=== PATIENT | female | born 1975 | race Two or more races ===

== ENCOUNTER 2022-02-25 05:35 | Inpatient (IN) | payer BC ==
[2022-02-22 09:41] VITALS: BMI 50.1
[2022-02-25] MEDS ORDERED: LIDOCAINE HCL 1% EPINEPHRINE 1:200,000 30 ML VIAL (PF) ONE (07:21)
[2022-02-25] MEDS ORDERED: BUPIVACAINE HCL/PF 0.5% (5MG/ML) 10 ML VIAL ONE (07:21)
[2022-02-25] MEDS ORDERED: THROMBIN (BOVINE) 20,000 UNIT VIAL TP ONE (07:21)
[2022-02-25] MEDS ORDERED: GENTAMICIN SO4 80 MG/2 ML VIAL ONE (07:21)
[2022-02-25] MEDS ORDERED: BUPIVACAINE LIPOSOME/PF (EXPAREL) 266 MG/20 ML VIAL ONE (07:21)
[2022-02-25] MEDS ORDERED: ceFAZolin SODIUM 1 GM VIAL IVPB ONE ×2 (07:36→09:04)
[2022-02-25] MEDS ORDERED: ROCURONIUM BROMIDE 50 MG/5 ML SYRINGE ONE ×2 (07:38→09:52)
[2022-02-25] MEDS ORDERED: THROMBIN (BOVINE) 5,000 UNIT VIAL TP ONE ×2 (07:38→10:10)
[2022-02-25] MEDS ORDERED: SUCCINYLCHOLINE CHLORIDE 200 MG/10 ML SYRINGE ONE (07:38)
[2022-02-25] MEDS ORDERED: VANCOMYCIN 1 GM in D5W (PRE-DOCKED) 1,000 MG/250 ML IVPB ONE ×4 (07:38→11:17)
[2022-02-25] MEDS ORDERED: PROPOFOL 20 ML ONE ×5 (07:38→11:21)
[2022-02-25] MEDS ORDERED: MIDAZOLAM HCL 2 MG/2 ML SINGLE DOSE VIAL ONE (07:39)
[2022-02-25] MEDS ORDERED: GENTAMICIN SO4 80 MG/2 ML VIAL IVPB ONE ×2 (07:40→10:15)
[2022-02-25] MEDS ORDERED: HYDROGEN PEROXIDE 473 ML PO ONE ×2 (07:41→10:19)
[2022-02-25] MEDS ORDERED: BUPIVACAINE HCL/PF 0.5% (5MG/ML) 10 ML VIAL IJ ONE ×2 (07:43→11:20)
[2022-02-25] MEDS ORDERED: BUPIVACAINE LIPOSOME/PF (EXPAREL) 266 MG/20 ML VIAL NR ONE ×2 (07:43→11:20)
[2022-02-25] MEDS ORDERED: VANCOMYCIN 1,000 MG VIAL (RESTRICTED TO ID ONLY) ONE ×2 (07:45→09:18)
[2022-02-25] MEDS ORDERED: DEXMEDETOMIDINE HCL 200 MCG/2 ML IVPB ONE (07:56)
[2022-02-25] MEDS ORDERED: ACETAMINOPHEN INJECTION 100 ML IVPB ONE (07:56)
[2022-02-25] MEDS ORDERED: LIDOCAINE HCL/PF 2% SDV 5ML VIAL ONE (09:18)
[2022-02-25] MEDS ORDERED: ceFAZolin SODIUM 1 GM VIAL ONE ×2 (09:18→17:27)
[2022-02-25] MEDS ORDERED: ONDANSETRON 4 MG/2 ML VIAL ONE (09:18)
[2022-02-25] MEDS ORDERED: DEXAMETHASONE SOD PHOSPHATE 4 MG/1 ML VIAL ONE (09:18)
[2022-02-25] MEDS ORDERED: TRIAMTERENE AND HCTZ - 37.5 MG/25 MG CAPSULE PO SCH (10:00)
[2022-02-25] MEDS ORDERED: GELATIN, ABSORBABLE 100 EACH SPONGE TP ONE (11:21)
[2022-02-25] MEDS ORDERED: LIDOCAINE HCL 2% JELLY (5 ML/TUBE) ONE (11:55)
[2022-02-25] MEDS ORDERED: ONDANSETRON 4 MG/2 ML VIAL IVPUSH PRN ×2 (12:37→12:41)
[2022-02-25] MEDS ORDERED: diphenhydrAMINE HCL 25 MG CAPSULE (FP) PO PRN (12:41)
[2022-02-25] MEDS ORDERED: LACTATED RINGERS SOLUTION 1,000 ML IV SCH (12:45)
[2022-02-25] MEDS: LACTATED RINGERS SOLUTION 1,000 ML/1,000 ML INFUS.BAG IV SCH ×2 (13:10→13:30)
[2022-02-25] MEDS ORDERED: METHOTREXATE 2.5 MG TABLET PO SCH (13:15)
[2022-02-25] MEDS: DOCUSATE SODIUM 100 MG CAPSULE (FP) PO SCH ×3 (16:11→21:53)
[2022-02-25] MEDS ORDERED: POLYETHYLENE GLYCOL (HEALTHYLAX) 3350 17 GM PACKET PO PRN (16:14)
[2022-02-25] MEDS: INSULIN SLIDING SCALE (NOVOLOG) 1 VIAL SQ SCH ×2 (17:12→21:54)
[2022-02-25] MEDS ORDERED: DEXTROSE 5%-WATER - 50 ML IVPB ONE (17:27)
[2022-02-25] MEDS: CEFAZOLIN 1 GM in DEXTROSE 5%-WATER - 1 GM/50 ML IVPB IVPB SCH (17:49)
[2022-02-25] MEDS ORDERED: LOSARTAN POTASSIUM 50 MG TABLET PO SCH (18:00)
[2022-02-25] MEDS ORDERED: METOCLOPRAMIDE HCL INJECTION 10 MG/2 ML VIAL IVPUSH ONE (20:22)
[2022-02-25] MEDS: FOLIC ACID 1 MG TABLET (FP) PO SCH (21:53)
[2022-02-26] MEDS ORDERED: DEXTROSE 5%-WATER - 50 ML IVPB ONE ×3 (00:58→18:16)
[2022-02-26] MEDS ORDERED: ceFAZolin SODIUM 1 GM VIAL ONE ×3 (00:58→18:16)
[2022-02-26] MEDS: CEFAZOLIN 1 GM in DEXTROSE 5%-WATER - 1 GM/50 ML IVPB IVPB SCH ×3 (01:03→18:28)
[2022-02-26] MEDS ORDERED: TRIAMTERENE AND HCTZ - 37.5 MG/25 MG CAPSULE PO SCH ×2 (02:00→10:00)
[2022-02-26] MEDS: INSULIN SLIDING SCALE (NOVOLOG) 1 VIAL SQ SCH ×2 (06:50→12:31)
[2022-02-26] MEDS: DOCUSATE SODIUM 100 MG CAPSULE (FP) PO SCH ×4 (06:50→21:26)
[2022-02-26] MEDS ORDERED: HEPARIN NA (PORCINE) 5,000 UNITS/ML 1ML VIAL SQ SCH (07:00)
[2022-02-26] MEDS ORDERED: LEVOTHYROXINE NA 100 MCG TABLET (FP) PO SCH (07:00)
[2022-02-26] MEDS ORDERED: FERROUS SO4 325 MG TABLET (FP) PO SCH (08:00)
[2022-02-26] MEDS ORDERED: oxyCODONE HCL 5 MG TABLET PO PRN ×3 (09:00→11:57)
[2022-02-26 09:19] LABS: HEMATOCRIT 31.3 % (32.4-45.2); HEMOGLOBIN 10.4 GM/dL (10.7-15.3); MCH 28.8 pg (25.7-33.7); MCHC 33.2 g/dl (32.0-36.0); MEAN CELL VOLUME 86.9 fl (80-96); MEAN PLT VOLUME 7.9 fl (7.5-11.1); PLATELET COUNT 432 10^3/uL (134-434); RDW 14.1 % (11.6-15.6); WHITE BLOOD COUNT 14.2 K/mm3 (4.0-10.0)
[2022-02-26] MEDS ORDERED: INSULIN (LEVEMIR) 100 UNITS/ML UNITS SQ SCH ×2 (09:30→15:33)
[2022-02-26 09:47] LABS: ALBUMIN 3.5 g/dl (3.4-5.0); BLOOD UREA NITROGEN 14.9 mg/dL (7-18)
[2022-02-26 09:49] LABS: CALCIUM 9.6 mg/dL (8.5-10.1)
[2022-02-26 09:50] LABS: CREATININE 0.7 mg/dL (0.55-1.3)
[2022-02-26 09:51] LABS: BILIRUBIN,TOTAL 0.9 mg/dL (0.2-1); TOT PROT 6.5 g/dl (6.4-8.2)
[2022-02-26] MEDS ORDERED: METHOCARBAMOL 750 MG TABLET PO PRN (09:57)
[2022-02-26] MEDS ORDERED: FAMOTIDINE 20 MG TABLET PO SCH (10:00)
[2022-02-26] MEDS ORDERED: amLODIPine BESYLATE 10 MG TABLET (FP) PO SCH (10:00)
[2022-02-26] MEDS ORDERED: LOSARTAN POTASSIUM 50 MG TABLET PO SCH (10:00)
[2022-02-26] MEDS ORDERED: FOLIC ACID 1 MG TABLET (FP) PO SCH (10:00)
[2022-02-26] MEDS ORDERED: LACTOBACILLUS ACIDOPHILUS 1 TABLET PO SCH (10:00)
[2022-02-26] MEDS: FOLIC ACID 1 MG TABLET (FP) PO SCH ×2 (10:25→21:27)
[2022-02-26] MEDS ORDERED: morphine SULFATE 4 MG/ML VIAL IVPUSH PRN (11:00)
[2022-02-26] MEDS ORDERED: ONDANSETRON 4 MG/2 ML VIAL IVPUSH PRN (11:57)
[2022-02-26] MEDS ORDERED: POLYETHYLENE GLYCOL (HEALTHYLAX) 3350 17 GM PACKET PO PRN (11:57)
[2022-02-26] MEDS ORDERED: LACTATED RINGERS SOLUTION 1,000 ML/1,000 ML INFUS.BAG IV SCH (11:57)
[2022-02-26] MEDS ORDERED: diphenhydrAMINE HCL 25 MG CAPSULE (FP) PO PRN (11:57)
[2022-02-26] MEDS: oxyCODONE HCL 5 MG TABLET PO PRN ×2 (13:10→21:27)
[2022-02-26] MEDS: HEPARIN NA (PORCINE) 5,000 UNITS/ML 1ML VIAL SQ SCH ×2 (15:26→23:55)
[2022-02-26] MEDS ORDERED: INSULIN SLIDING SCALE (NOVOLOG) 1 VIAL SQ SCH ×2 (16:30)
[2022-02-26] MEDS: LOSARTAN POTASSIUM 50 MG TABLET PO SCH (18:24)
[2022-02-26] MEDS: MONTELUKAST NA 10 MG TABLET PO SCH (21:25)
[2022-02-26] MEDS: ONDANSETRON *ODT* 4 MG TABLET SL PRN (21:27)
[2022-02-27] MEDS ORDERED: ceFAZolin SODIUM 1 GM VIAL ONE ×3 (01:55→19:15)
[2022-02-27] MEDS ORDERED: DEXTROSE 5%-WATER - 50 ML IVPB ONE ×3 (01:56→19:15)
[2022-02-27] MEDS ORDERED: TRIAMTERENE AND HCTZ - 37.5 MG/25 MG CAPSULE PO SCH ×2 (02:00→10:00)
[2022-02-27] MEDS: TRIAMTERENE AND HCTZ - 37.5 MG/25 MG CAPSULE PO SCH (02:31)
[2022-02-27] MEDS: METHOCARBAMOL 500 MG TABLET PO PRN ×3 (02:32→22:32)
[2022-02-27] MEDS: CEFAZOLIN 1 GM in DEXTROSE 5%-WATER - 1 GM/50 ML IVPB IVPB SCH ×4 (02:32→19:17)
[2022-02-27] MEDS: DOCUSATE SODIUM 100 MG CAPSULE (FP) PO SCH ×3 (05:26→22:33)
[2022-02-27] MEDS: LEVOTHYROXINE NA 100 MCG TABLET (FP) PO SCH (06:21)
[2022-02-27] MEDS: HEPARIN NA (PORCINE) 5,000 UNITS/ML 1ML VIAL SQ SCH ×3 (06:50→22:34)
[2022-02-27] MEDS: glipiZIDE-XL 5 MG TAB.ER.24 PO SCH (06:51)
[2022-02-27] MEDS: ONDANSETRON *ODT* 4 MG TABLET SL PRN ×3 (06:51→21:07)
[2022-02-27] MEDS ORDERED: FERROUS SO4 325 MG TABLET (FP) PO SCH (08:00)
[2022-02-27 08:14] LABS: BASO % 0.5 % (0-2.0); EOS % 0.3 % (0-4.5); HEMATOCRIT 30.1 % (32.4-45.2); HEMOGLOBIN 10.1 GM/dL (10.7-15.3); LYMPH % 22.7 % (8-40); MCHC 33.5 g/dl (32.0-36.0); MEAN CELL VOLUME 86.5 fl (80-96); MEAN PLT VOLUME 7.9 fl (7.5-11.1); NEUT % 66.5 % (42.8-82.8); PLATELET COUNT 378 10^3/uL (134-434); RBC 3.48 M/mm3 (3.60-5.2); RDW 14.5 % (11.6-15.6); WHITE BLOOD COUNT 14.3 K/mm3 (4.0-10.0)
[2022-02-27 08:37] LABS: CALCIUM 8.6 mg/dL (8.5-10.1)
[2022-02-27 08:38] LABS: BLOOD UREA NITROGEN 12.8 mg/dL (7-18)
[2022-02-27 08:42] LABS: CREATININE 0.7 mg/dL (0.55-1.3)
[2022-02-27] MEDS: FOLIC ACID 1 MG TABLET (FP) PO SCH ×2 (09:01→22:33)
[2022-02-27] MEDS: FAMOTIDINE 20 MG TABLET PO SCH (09:05)
[2022-02-27] MEDS: LACTOBACILLUS ACIDOPHILUS 1 TABLET PO SCH (09:06)
[2022-02-27] MEDS: amLODIPine BESYLATE 10 MG TABLET (FP) PO SCH (09:06)
[2022-02-27] MEDS ORDERED: METHOTREXATE 2.5 MG TABLET PO SCH ×2 (10:00)
[2022-02-27] MEDS: morphine SULFATE 4 MG/ML VIAL IVPUSH PRN ×2 (14:42→21:07)
[2022-02-27] MEDS ORDERED: POTASSIUM CHLORIDE TABS 20 MEQ TABLET.ER (FP) PO ONE (18:32)
[2022-02-27] MEDS: LOSARTAN POTASSIUM 50 MG TABLET PO SCH (18:48)
[2022-02-27] MEDS: MONTELUKAST NA 10 MG TABLET PO SCH (22:33)
[2022-02-28] MEDS ORDERED: ceFAZolin SODIUM 1 GM VIAL ONE ×3 (01:16→17:06)
[2022-02-28] MEDS ORDERED: DEXTROSE 5%-WATER - 50 ML IVPB ONE ×3 (01:17→17:06)
[2022-02-28] MEDS: TRIAMTERENE AND HCTZ - 37.5 MG/25 MG CAPSULE PO SCH (01:57)
[2022-02-28] MEDS: CEFAZOLIN 1 GM in DEXTROSE 5%-WATER - 1 GM/50 ML IVPB IVPB SCH ×3 (01:57→17:42)
[2022-02-28] MEDS: ONDANSETRON *ODT* 4 MG TABLET SL PRN ×4 (03:30→22:36)
[2022-02-28] MEDS: morphine SULFATE 4 MG/ML VIAL IVPUSH PRN ×3 (03:30→22:36)
[2022-02-28] MEDS: glipiZIDE-XL 5 MG TAB.ER.24 PO SCH (06:52)
[2022-02-28] MEDS: LEVOTHYROXINE NA 100 MCG TABLET (FP) PO SCH (06:53)
[2022-02-28] MEDS: DOCUSATE SODIUM 100 MG CAPSULE (FP) PO SCH ×3 (06:53→22:36)
[2022-02-28] MEDS: HEPARIN NA (PORCINE) 5,000 UNITS/ML 1ML VIAL SQ SCH ×3 (06:54→22:36)
[2022-02-28 09:03] LABS: HEMATOCRIT 32.2 % (32.4-45.2); HEMOGLOBIN 10.8 GM/dL (10.7-15.3); MCH 28.6 pg (25.7-33.7); MCHC 33.5 g/dl (32.0-36.0); MEAN CELL VOLUME 85.6 fl (80-96); MEAN PLT VOLUME 7.8 fl (7.5-11.1); PLATELET COUNT 443 10^3/uL (134-434); RBC 3.77 M/mm3 (3.60-5.2); RDW 14.3 % (11.6-15.6); WHITE BLOOD COUNT 12.1 K/mm3 (4.0-10.0)
[2022-02-28 09:28] LABS: CALCIUM 9.2 mg/dL (8.5-10.1)
[2022-02-28 09:30] LABS: CREATININE 0.8 mg/dL (0.55-1.3)
[2022-02-28] MEDS: LACTOBACILLUS ACIDOPHILUS 1 TABLET PO SCH (10:11)
[2022-02-28] MEDS: METHOCARBAMOL 500 MG TABLET PO PRN ×2 (10:11→20:19)
[2022-02-28] MEDS: FOLIC ACID 1 MG TABLET (FP) PO SCH ×2 (10:11→22:35)
[2022-02-28] MEDS: amLODIPine BESYLATE 10 MG TABLET (FP) PO SCH (10:11)
[2022-02-28] MEDS: FAMOTIDINE 20 MG TABLET PO SCH (10:11)
[2022-02-28] MEDS: oxyCODONE HCL 5 MG TABLET PO PRN (12:13)
[2022-02-28] MEDS: LOSARTAN POTASSIUM 50 MG TABLET PO SCH (18:13)
[2022-02-28] MEDS: MONTELUKAST NA 10 MG TABLET PO SCH (22:36)
[2022-03-01] MEDS ORDERED: DEXTROSE 5%-WATER - 50 ML IVPB ONE ×2 (00:59→10:49)
[2022-03-01] MEDS ORDERED: ceFAZolin SODIUM 1 GM VIAL ONE ×2 (00:59→10:48)
[2022-03-01] MEDS: CEFAZOLIN 1 GM in DEXTROSE 5%-WATER - 1 GM/50 ML IVPB IVPB SCH ×2 (01:12→10:53)
[2022-03-01] MEDS: morphine SULFATE 4 MG/ML VIAL IVPUSH PRN ×2 (04:03→11:40)
[2022-03-01] MEDS: ONDANSETRON *ODT* 4 MG TABLET SL PRN ×2 (04:04→11:42)
[2022-03-01] MEDS: HEPARIN NA (PORCINE) 5,000 UNITS/ML 1ML VIAL SQ SCH (06:44)
[2022-03-01] MEDS: DOCUSATE SODIUM 100 MG CAPSULE (FP) PO SCH (06:45)
[2022-03-01] MEDS: oxyCODONE HCL 5 MG TABLET PO PRN (06:49)
[2022-03-01] MEDS: METHOCARBAMOL 500 MG TABLET PO PRN (06:49)
[2022-03-01] MEDS: TRIAMTERENE AND HCTZ - 37.5 MG/25 MG CAPSULE PO SCH (06:52)
[2022-03-01 09:07] LABS: BASO % 0.4 % (0-2.0); EOS % 1.5 % (0-4.5); HEMATOCRIT 33.1 % (32.4-45.2); HEMOGLOBIN 11.2 GM/dL (10.7-15.3); LYMPH % 27.4 % (8-40); MCH 29.3 pg (25.7-33.7); MCHC 33.9 g/dl (32.0-36.0); MEAN CELL VOLUME 86.3 fl (80-96); MEAN PLT VOLUME 8.3 fl (7.5-11.1); MONO % 6.6 % (3.8-10.2); NEUT % 64.1 % (42.8-82.8); PLATELET COUNT 420 10^3/uL (134-434); RBC 3.83 M/mm3 (3.60-5.2); RDW 14.5 % (11.6-15.6); WHITE BLOOD COUNT 9.9 K/mm3 (4.0-10.0)
[2022-03-01 09:26] LABS: BLOOD UREA NITROGEN 12.9 mg/dL (7-18)
[2022-03-01 09:30] LABS: CREATININE 0.8 mg/dL (0.55-1.3)
[2022-03-01] MEDS: LACTOBACILLUS ACIDOPHILUS 1 TABLET PO SCH (10:51)
[2022-03-01] MEDS: FOLIC ACID 1 MG TABLET (FP) PO SCH (10:52)
[2022-03-01] MEDS: amLODIPine BESYLATE 10 MG TABLET (FP) PO SCH (10:52)
[2022-03-01] MEDS: FAMOTIDINE 20 MG TABLET PO SCH (10:52)
[2022-03-01 12:07] VITALS: BP 105/55; PULSE 78; TEMP 98.3
[2022-03-01] MEDS: LEVOTHYROXINE NA 100 MCG TABLET (FP) PO SCH (12:13)
== END 2022-03-01 13:16 | disposition home or self-care (01) | DRG 454 ==
LOC: J2C 05:35 → J4S 15:14 → J8W 02-26 11:19
PROVIDERS: ADMIT Neurological Surgery
PROC: 0SG3071 Fusion of Lumbosacral Joint with Autologous Tissue Substitute, Posterior Approach, Posterior Column, Open Approach (ICD-10-PCS; 2022-02-25)
PROC: 0SB40ZZ Excision of Lumbosacral Disc, Open Approach (ICD-10-PCS; 2022-02-25)
PROC: 01NA0ZZ Release Lumbosacral Plexus, Open Approach (ICD-10-PCS; 2022-02-25)
PROC: 4A1004G Monitoring of Central Nervous Electrical Activity, Intraoperative, Open Approach (ICD-10-PCS; 2022-02-25)
PROC: 0SG30AJ Fusion of Lumbosacral Joint with Interbody Fusion Device, Posterior Approach, Anterior Column, Open Approach (ICD-10-PCS; principal; 2022-02-25 08:00)
DX: M51.27 Other intervertebral disc displacement, lumbosacral region (principal); Z68.43 Body mass index [BMI] 50.0-59.9, adult; M47.897 Other spondylosis, lumbosacral region; I10 Essential (primary) hypertension; E78.5 Hyperlipidemia, unspecified; E03.9 Hypothyroidism, unspecified; E66.01 Morbid (severe) obesity due to excess calories; K21.9 Gastro-esophageal reflux disease without esophagitis; E11.9 Type 2 diabetes mellitus without complications; Y83.9 Surgical procedure, unspecified as the cause of abnormal reaction of the patient, or of later complication, without mention of misadventure at the time of the procedure
CPT/HCPCS: 36415; 72131-TC; 76000-TC-FY; 80048; 80053; 82962; 84703; 85025; 85027; 86850; 86900; 86901; 94010; 94760; 97116-GP; 97161-GP; J1644; J8610; Q0162

== ENCOUNTER 2022-10-16 04:08 | Inpatient (IN) | payer BC ==
[2022-10-14 14:49] VITALS: BMI 49.0
[2022-10-16] MEDS ORDERED: BUPIVACAINE HCL/PF 0.5% (5MG/ML) 10 ML VIAL ONE (07:43)
[2022-10-16] MEDS ORDERED: BUPIVACAINE LIPOSOME/PF (EXPAREL) 266 MG/20 ML VIAL ONE (07:43)
[2022-10-16] MEDS ORDERED: MIDAZOLAM HCL 2 MG/2 ML SINGLE DOSE VIAL ONE (07:52)
[2022-10-16] MEDS ORDERED: GABAPENTIN 300 MG CAPSULE PO ONE (08:00)
[2022-10-16] MEDS ORDERED: ACETAMINOPHEN 1000 MG/100 ML BAG IVPB ONE ×2 (08:00→13:41)
[2022-10-16] MEDS ORDERED: CEFAZOLIN 2 GM in DEXTROSE 5%-WATER - 100 ML IVPB ONE (08:00)
[2022-10-16] MEDS ORDERED: GABAPENTIN 300 MG CAPSULE ONE (08:14)
[2022-10-16] MEDS ORDERED: ceFAZolin SODIUM 1 GM VIAL ONE ×2 (08:15→10:05)
[2022-10-16] MEDS ORDERED: PROPOFOL 20 ML ONE ×2 (09:00→09:59)
[2022-10-16] MEDS ORDERED: TRANEXAMIC ACID 1000 MG/10 ML VIAL IVPUSH ONE (09:00)
[2022-10-16] MEDS ORDERED: ROCURONIUM BROMIDE 50 MG/5 ML SYRINGE ONE ×4 (09:00→11:08)
[2022-10-16] MEDS ORDERED: FENTANYL CITRATE/PF 50 MCG/ML VIAL ONE ×3 (09:00→15:15)
[2022-10-16] MEDS ORDERED: ONDANSETRON 4 MG/2 ML VIAL ONE ×2 (09:01→14:26)
[2022-10-16] MEDS ORDERED: DEXAMETHASONE SOD PHOSPHATE 4 MG/1 ML VIAL ONE (09:01)
[2022-10-16] MEDS ORDERED: LIDOCAINE HCL/PF 2% SDV 5ML VIAL ONE (09:01)
[2022-10-16] MEDS ORDERED: HYDROmorphone HCl 2 MG/ML VIAL ONE (10:06)
[2022-10-16] MEDS ORDERED: ceFAZolin SODIUM 1 GM VIAL IVPB ONE (10:10)
[2022-10-16] MEDS ORDERED: ACETAMINOPHEN INJECTION 100 ML IVPB ONE (11:30)
[2022-10-16] MEDS ORDERED: GLYCOPYRROLATE 0.2 MG/1 ML VIAL ONE (12:45)
[2022-10-16] MEDS ORDERED: NEOSTIGMINE METHYLSULFATE 0.5 MG/ML - 10 ML MDV ONE (12:45)
[2022-10-16] MEDS ORDERED: METHOCARBAMOL 500 MG TABLET PO PRN (13:42)
[2022-10-16] MEDS ORDERED: ACETAMINOPHEN 1000 MG/100 ML BAG IVPB SCH (13:45)
[2022-10-16] MEDS ORDERED: oxyCODONE HCL 5 MG TABLET PO PRN ×2 (13:45)
[2022-10-16] MEDS: KETOROLAC TROMETHAMINE 15 MG/ML VIAL IVPUSH SCH ×2 (14:00→20:00)
[2022-10-16] MEDS ORDERED: KETOROLAC TROMETHAMINE 30 MG/1 ML VIAL ONE ×2 (14:23→19:50)
[2022-10-16] MEDS: ONDANSETRON 4 MG/2 ML VIAL IVPUSH PRN ×2 (14:30→20:01)
[2022-10-16] MEDS: LACTATED RINGERS SOLUTION 1,000 ML/1,000 ML INFUS.BAG IV SCH ×2 (15:30→22:08)
[2022-10-16] MEDS: CEFAZOLIN SODIUM 2 GM in DEXTROSE 5%-WATER 100 ML IVPB SCH (17:55)
[2022-10-16] MEDS ORDERED: CEFAZOLIN SODIUM 2 GM in DEXTROSE 5%-WATER - 100 ML IVPB SCH (18:00)
[2022-10-16] MEDS ORDERED: KETOROLAC TROMETHAMINE 30 MG/1 ML VIAL IVPUSH SCH (20:24)
[2022-10-16] MEDS: LOSARTAN POTASSIUM 50 MG TABLET PO SCH (21:38)
[2022-10-16] MEDS: LORATADINE 10 MG TABLET PO SCH (21:38)
[2022-10-16] MEDS: MONTELUKAST NA 10 MG TABLET PO SCH (22:04)
[2022-10-17 00:01] VITALS: RESP 18
[2022-10-17] MEDS: CEFAZOLIN SODIUM 2 GM in DEXTROSE 5%-WATER 100 ML IVPB SCH (02:10)
[2022-10-17] MEDS: TRIAMTERENE AND HCTZ - 37.5 MG/25 MG CAPSULE PO SCH (02:11)
[2022-10-17] MEDS: ONDANSETRON 4 MG/2 ML VIAL IVPUSH PRN ×4 (02:11→20:22)
[2022-10-17] MEDS: KETOROLAC TROMETHAMINE 30 MG/1 ML VIAL IVPUSH SCH ×4 (02:11→20:48)
[2022-10-17] MEDS: LACTATED RINGERS SOLUTION 1,000 ML/1,000 ML INFUS.BAG IV SCH ×2 (06:19→14:30)
[2022-10-17] MEDS: LEVOTHYROXINE NA 100 MCG TABLET (FP) PO SCH (07:03)
[2022-10-17 08:37] LABS: BASO % 0.6 % (0-2.0); EOS % 0.2 % (0-4.5); HEMATOCRIT 32.5 % (32.4-45.2); HEMOGLOBIN 10.7 GM/dL (10.7-15.3); LYMPH % 21.1 % (8-40); MCH 27.1 pg (25.7-33.7); MCHC 33.1 g/dl (32.0-36.0); MEAN CELL VOLUME 82.1 fl (80-96); MEAN PLT VOLUME 7.9 fl (7.5-11.1); MONO % 9.2 % (3.8-10.2); NEUT % 68.9 % (42.8-82.8); PLATELET COUNT 385 10^3/uL (134-434); RBC 3.96 M/mm3 (3.60-5.2); RDW 14.9 % (11.6-15.6); WHITE BLOOD COUNT 15.8 K/mm3 (4.0-10.0)
[2022-10-17 08:43] LABS: BLOOD UREA NITROGEN 13.5 mg/dL (7-18)
[2022-10-17 08:46] LABS: CREATININE 0.8 mg/dL (0.55-1.3)
[2022-10-17] MEDS: ENOXAPARIN NA (PORCINE) 40 MG/0.4 ML DISP.SYRIN SQ SCH (09:42)
[2022-10-17] MEDS: amLODIPine BESYLATE 10 MG TABLET (FP) PO SCH (09:45)
[2022-10-17] MEDS ORDERED: ENOXAPARIN NA (PORCINE) 40 MG/0.4 ML DISP.SYRIN SQ SCH (10:00)
[2022-10-17] MEDS: LOSARTAN POTASSIUM 50 MG TABLET PO SCH (17:38)
[2022-10-17] MEDS: MONTELUKAST NA 10 MG TABLET PO SCH (22:51)
[2022-10-17] MEDS: LORATADINE 10 MG TABLET PO SCH (22:51)
[2022-10-18] MEDS: ONDANSETRON 4 MG/2 ML VIAL IVPUSH PRN ×2 (01:59→08:16)
[2022-10-18] MEDS: TRIAMTERENE AND HCTZ - 37.5 MG/25 MG CAPSULE PO SCH (02:04)
[2022-10-18] MEDS: KETOROLAC TROMETHAMINE 30 MG/1 ML VIAL IVPUSH SCH ×3 (02:35→13:50)
[2022-10-18] MEDS: LEVOTHYROXINE NA 100 MCG TABLET (FP) PO SCH (06:37)
[2022-10-18 08:43] VITALS: TEMP 98.2
[2022-10-18] MEDS: ENOXAPARIN NA (PORCINE) 40 MG/0.4 ML DISP.SYRIN SQ SCH (09:33)
[2022-10-18] MEDS: amLODIPine BESYLATE 10 MG TABLET (FP) PO SCH (12:25)
[2022-10-18 12:26] VITALS: BP 122/68; PULSE 73
== END 2022-10-18 14:35 | disposition home or self-care (01) | DRG 742 ==
LOC: JASU-SURG 04:08 → J2C 13:39 → J3W 16:40
PROVIDERS: ADMIT Specialist; ATTEND Specialist
PROC: 0UT70ZZ Resection of Bilateral Fallopian Tubes, Open Approach (ICD-10-PCS; 2022-10-16)
PROC: 0DNW0ZZ Release Peritoneum, Open Approach (ICD-10-PCS; 2022-10-16)
PROC: 8E0W0CZ Robotic Assisted Procedure of Trunk Region, Open Approach (ICD-10-PCS; 2022-10-16)
PROC: 0UT90ZZ Resection of Uterus, Open Approach (ICD-10-PCS; principal; 2022-10-16 09:00)
DX: D25.9 Leiomyoma of uterus, unspecified (principal); Z68.42 Body mass index [BMI] 45.0-49.9, adult; R10.2 Pelvic and perineal pain; N73.6 Female pelvic peritoneal adhesions (postinfective); N80.8 Other endometriosis; E66.01 Morbid (severe) obesity due to excess calories; Z53.31 Laparoscopic surgical procedure converted to open procedure
CPT/HCPCS: 36415; 74018-TC-FY; 80048; 81025; 85025; 88302-TC; 88307-TC; 94010; 94760